=== PATIENT | male | born 1960 | race Caucasian/White ===

== ENCOUNTER → 2016-12-16 | Outpatient (CLI) | payer BC ==
[~2016-12-16] MED LIST: AMLODIPINE BESYL5 MG PO; ASPIRIN EC81 M1 PO; BENAZEPRIL HCL5 MG PO; BRILINTA90 MG PO; CLOPIDOGREL75 MG PO; CRESTOR40 MG PO; DILANTIN PO; FISH OIL OMEGA1 EAC2 PO; GLUCOPHAGE500 MG PO; KEFLEX500 MG PO; LASIX PO; LOPID600 MG PO; LOTENSIN20 MG PO; LOW DOSE ASPIRI81 M1 PO; METFORMIN PO; METOPROLOL SUCC25 MG PO; MULTI VITAMIN1 EACH PO; NITROSTAT0.4 MG SL; NORVASC PO; PHENYTOIN SODI100 M4 PO; PLAVIX PO; VALPROIC ACID250 MG PO; VICTOZA0.6 MG/0.1 SQ; VICTOZA0.6 MG/0.1 SUBQ; ZETIA PO
--- NOTE | ~2016-12-16 | CT134 ---
[facility] A Service [facility] RADIOLOGY TEXT RESULTS PATIENT: YVES ROUSE LOCATION: [facility] : 62 UNIT #: [id number] AGE: [address]: Jeremías Govea MD SEX: M ORDER DR: [id number] [place] [address] [facility]. [place], [place] [address] [id number] O MR#: [id number] Acc #: [id number] NAME: YVES ROUSE : 1960 SEX: M STUDY DATE/TIME: 12/16/2016 9:16 UNIT: [facility] ROOM: STUDY DESCRIPTION: CT Guide Attending Physician: Jeremías Govea M.D. Ordering Physician: Jeremías Govea M.D. Primary Care Physician: Guillermo Nelson M.D. MEDICAL IMAGING REPORT This report is preliminary unless electronic signature is present REVISED REPORT EXAM CT-guided biopsy of external iliac nodes. DATE OF EXAM 12/16/2016 HISTORY SUPPLIED Inguinal and pelvic lymphadenopathy. Procedure, attendant risks and options were discussed with the patient who understands and wishes to proceed. TECHNIQUE NOTE: This CT exam was performed with one or more of the following radiation dose reduction techniques: automatic exposure control, adjustment of mA and/or kV according to patient size, and iterative reconstruction. PROCEDURE This examination was performed under conscious sedation with IV Versed and fentanyl. The patient was monitored by the IR nurse during the entire procedure. Total sedation time 35 minutes. Patient was scanned and subsequently the right iliac node was localized. The skin was marked, prepped and draped with chlorhexidine solution, and sterile drapes. Utilizing sterile gloves, a 17-gauge guide needle was advanced incrementally to the margin of the node and 18-gauge core specimens were obtained and placed in the media for flow cytometry, as well as histology. Needle was removed, hemostasis achieved. The procedure was very well tolerated. The patient has taken to the short-stay unit for monitoring for 1 hour prior to discharge. [facility] A Service [facility] RADIOLOGY TEXT RESULTS PATIENT: YVES ROUSE LOCATION: [facility] #: [id number] : 62 UNIT #: [id number] AGE: [address]: Jeremías Govea MD SEX: M ORDER DR: CONCLUSION Successful CT-guided biopsy of the right external iliac node. *ACCESSION NUMBER MODIFIED. Dictated by... Kostas Saenz M.D. THIS IS AN ELECTRONICALLY VERIFIED REPORT Kostas Saenz M.D. at 12/24/2016 5:18 PM Kathleen TD: 12/16/2016 16:56 JOB #: [id number] MEDICAL IMAGING REPORT Page 1 of 1 COPY
--- NOTE | ~2016-12-16 | CT134 ---
[facility] A Service [facility] RADIOLOGY TEXT RESULTS PATIENT: YVES ROUSE LOCATION: [facility] : 62 UNIT #: [id number] AGE: [address]: Jeremías Govea MD SEX: M ORDER DR: [id number] [place] [id number] [facility]. [place], [place] [address] [id number] O MR#: [id number] Acc #: [id number] NAME: YVES ROUSE. : 1960 SEX: M STUDY DATE/TIME: 12/16/2016 9:16 UNIT: [facility] ROOM: STUDY DESCRIPTION: CT Guide Attending Physician: Jeremías Govea M.D. Ordering Physician: Jeremías Govea M.D. Primary Care Physician: Guillermo Nelson M.D. MEDICAL IMAGING REPORT This report is preliminary unless electronic signature is present 2ND REVISION EXAM CT-guided biopsy of external iliac nodes. DATE OF EXAM 12/16/2016 HISTORY SUPPLIED Inguinal and pelvic lymphadenopathy. Procedure, attendant risks and options were discussed with the patient who understands and wishes to proceed. TECHNIQUE NOTE: This CT exam was performed with one or more of the following radiation dose reduction techniques: automatic exposure control, adjustment of mA and/or kV according to patient size, and iterative reconstruction. PROCEDURE This examination was performed under conscious sedation with IV Versed and fentanyl. The patient was monitored by the IR nurse during the entire procedure. Total sedation time 35 minutes. Patient was scanned and subsequently the right iliac node was localized. The skin was marked, prepped and draped with chlorhexidine solution, and sterile drapes. Utilizing sterile gloves, a 17-gauge guide needle was advanced incrementally to the margin of the node and 18-gauge core specimens were obtained and placed in the media for flow cytometry, as well as histology. Needle was removed, hemostasis achieved. The procedure was very well tolerated. The patient has taken to the short-stay unit for monitoring for 1 hour prior to discharge. [facility] A Service of [facility] RADIOLOGY TEXT RESULTS PATIENT: YVES ROUSE LOCATION: [facility] #: [id number] : 62 UNIT #: [id number] AGE: [address]: Jeremías Govea MD SEX: M ORDER DR: CONCLUSION Successful CT-guided biopsy of the right external iliac node. *ACCESSION NUMBER MODIFIED. Dictated by... Kostas Saenz M.D. THIS IS AN ELECTRONICALLY VERIFIED REPORT Kostas Saenz M.D. at 01/03/2017 7:34 AM Kathleen TD: 12/16/2016 16:56 JOB #: [id number] MEDICAL IMAGING REPORT Page 1 of 1 COPY
--- NOTE | ~2016-12-16 | XA55 ---
[facility]. [facility] A Service of [facility] RADIOLOGY TEXT RESULTS PATIENT: YVES ROUSE LOCATION: PSYCHIATRIC : 62 UNIT #: [id number] AGE: [address]: Jeremías Govea MD SEX: M ORDER DR: [id number] [facility] [address]. [place], [place] [address] [id number] O MR#: [id number] Acc #: [id number] NAME: YVES ROUSE. : 1960 SEX: M STUDY DATE/TIME: 12/16/2016 UNIT: PSYCHIATRIC ROOM: STUDY DESCRIPTION: XA BX Lymph Node Superficial Attending Physician: Jeremías Govea M.D. Ordering Physician: Jeremías Govea M.D. Primary Care Physician: Guillermo Nelson M.D. MEDICAL IMAGING REPORT This report is preliminary unless electronic signature is present EXAM XA biopsy lymph node superficial. DATE OF EXAM 12/16/2016 HISTORY SUPPLIED Inguinal and pelvic lymphadenopathy. Procedure, attendant risks and options were discussed with the patient who understands and wishes to proceed. FINDINGS Please see CT-guided biopsy of external iliac nodes for results. Dictated by... oKstas Saenz M.D. THIS IS AN ELECTRONICALLY VERIFIED REPORT Kostas Saenz M.D. at 12/20/2016 4:53 PM GREYSON/nicole TD: 12/16/2016 17:22 JOB #: [id number] MEDICAL IMAGING REPORT Page 1 of 1 COPY
[2016-12-16 07:55] LABS: HEMATOCRIT 36.6 % (38.0-50.0); HEMOGLOBIN 12.2 gm/dL (13.0-16.0); MEAN CELL VOLUME 82.6 FL (83-96); MEAN CORPUSCULAR HEMOGLOBIN 27.5 PG (28-34); MEAN CORPUSCULAR HGB CONC 33.3 g/dL (30-36); MEAN PLATELET VOLUME 7.1 FL (6.5-11.5); RED BLOOD COUNT 4.43 X10e (3.90-5.60); RED CELL DISTRIBUTION WIDTH 15.3 % (11.0-15.5); WHITE BLOOD COUNT 6.4 X10e3 (4.0-10.5)
[2016-12-16 08:18] LABS: PARTIAL THROMBOPLASTIN TIME 23.1 SECONDS (23.5-31.3); PROTHROMBIN TIME (PATIENT) 10.3 SECONDS (9.6-11.5)
== END | disposition home or self-care (01) ==
LOC: CIVR 07:26
PROVIDERS: Internal Medicine Hematology
DX: I88.9 Nonspecific lymphadenitis, unspecified (principal); D50.9 Iron deficiency anemia, unspecified; G47.30 Sleep apnea, unspecified; E11.9 Type 2 diabetes mellitus without complications; Z79.82 Long term (current) use of aspirin; Z79.02 Long term (current) use of antithrombotics/antiplatelets; E66.9 Obesity, unspecified; I25.2 Old myocardial infarction; Z95.5 Presence of coronary angioplasty implant and graft
CPT/HCPCS: 36415; 77012; 85027; 85610; 85730; 88305; 88312; J2250; J3010

== ENCOUNTER → 2016-12-17 | Outpatient (CLI) | payer BC ==
--- NOTE | ~2016-12-17 | CT134 ---
[facility] A Service [facility] RADIOLOGY TEXT RESULTS PATIENT: YVES ROUSE LOCATION: [facility] : 62 UNIT #: [id number] AGE: [address]: HERMES HISNON SEX: M ORDER DR: [id number] [facility] [address] [place], [place] [address] [id number] P MR#: [id number] Acc #: [id number] NAME: YVES ROUSE. : 1960 SEX: M STUDY DATE/TIME: 12/16/2016 9:16 UNIT: [facility] ROOM: STUDY DESCRIPTION: CT Guide Attending Physician: Hermes Holloway Od Referring Physician: Hermes Holloway Od Ordering Physician: Jeremías Govea M.D. Primary Care Physician: Guillermo Nelson M.D. MEDICAL IMAGING REPORT This report is preliminary unless electronic signature is present EXAM CT-guided biopsy of external iliac nodes. DATE OF EXAM 12/16/2016 HISTORY SUPPLIED Inguinal and pelvic lymphadenopathy. Procedure, attendant risks and options were discussed with the patient who understands and wishes to proceed. TECHNIQUE NOTE: This CT exam was performed with one or more of the following radiation dose reduction techniques: automatic exposure control, adjustment of mA and/or kV according to patient size, and iterative reconstruction. PROCEDURE This examination was performed under conscious sedation with IV Versed and fentanyl. The patient was monitored by the IR nurse during the entire procedure. Total sedation time 35 minutes. Patient was scanned and subsequently the right iliac node was localized. The skin was marked, prepped and draped with chlorhexidine solution, and sterile drapes. Utilizing sterile gloves, a 17-gauge guide needle was advanced incrementally to the margin of the node and 18-gauge core specimens were obtained and placed in the media for flow cytometry, as well as histology. Needle was removed, hemostasis achieved. The procedure was very well tolerated. The patient has taken to the short-stay unit for monitoring for 1 hour prior to discharge. CONCLUSION Successful CT-guided biopsy of the right external iliac node. [facility] A Service [facility] RADIOLOGY TEXT RESULTS PATIENT: YVES ROUSE [facility] : 62 UNIT #: [id number] AGE: [address]: HERMES HINSON SEX: M ORDER DR: Dictated by... Kostas Saenz M.D. THIS IS AN ELECTRONICALLY VERIFIED REPORT Kostas Saenz M.D. at 12/20/2016 4:53 PM GREYSON/nicole TD: 12/16/2016 16:56 JOB #: [id number] MEDICAL IMAGING REPORT Page 1 of 1 COPY
--- NOTE | ~2016-12-17 | MR148 ---
[facility] A Service of [facility] & [facility] RADIOLOGY TEXT RESULTS PATIENT: YVES ROUSE LOCATION: [facility] : 62 UNIT #: [id number] AGE: [address]: HERMES HINSON SEX: M ORDER DR: [id number] [facility] [address] [place], [place] [address] [id number] O MR#: [id number] Acc #: [id number] NAME: YVES ROUSE : 1960 SEX: M STUDY DATE/TIME: 12/17/2016 10:03 UNIT: [facility] ROOM: STUDY DESCRIPTION: MR Orbit Face and or Neck WWo Attending Physician: Hermes Hinson Referring Physician: Hermes Hinson Ordering Physician: Hermes Holloway Od Primary Care Physician: Guillermo Nelson M.D. MRI CENTER REPORT This report is preliminary unless electronic signature is present. EXAM Follow MRI of the orbit face or neck with and without HISTORY Increased pressure in the right eye, trouble with pressure since 2014. Patient is okay today, per patient. No history of cancer. Optic papillitis. COMMENT MRI of the orbits performed prior to and following intravenous administration of 20 mL of MultiHance. There is a separate brain MRI dictation. There are mucous retention cyst or polyps in the maxillary sinuses. The globes are intact. The lenses are located. Superior ophthalmic veins are symmetric. Lacrimal glands are unremarkable. The retrobulbar fat is well-maintained. The extraocular muscles are normal. Incidental note made of a partially empty sella. Optic nerves, chiasm and tracts show normal signal intensity. There is no mass effect or pathologic enhancement. There is nothing to suggest optic neuritis. The study would not be sensitive for papilledema. There is mild fullness of the optic nerve sheaths bilaterally which is very nonspecific. This can be seen is a manifestation of increased intracranial pressure and please correlate for clinical evidence of papilledema. Visualized brain is atrophic. IMPRESSION 1. Optic nerve sheaths are mildly dilated. This is very nonspecific but can be seen in the setting of papilledema. Please correlate for clinical evidence of increased intracranial pressure. 2. Partial demonstration of atrophy of the visualized brain parenchyma. 3. Otherwise essentially normal MRI of the orbits with and without contrast. [facility]. [facility] A Service of [facility] & [facility] RADIOLOGY TEXT RESULTS PATIENT: YVES ROUSE LOCATION: [facility] : 62 UNIT #: [id number] AGE: [address]: HERMES HINSON SEX: M ORDER DR: Dictated by... Malorie Cheek M.D. THIS IS AN ELECTRONICALLY VERIFIED REPORT Malorie Cheek M.D. at 12/17/2016 5:11 PM Taylor TD: 12/17/2016 13:01 JOB #: [id number] MRI CENTER REPORT Page 1 of 1 COPY
--- NOTE | ~2016-12-17 | MR17 ---
[facility] A Service of [facility] & [facility] RADIOLOGY TEXT RESULTS PATIENT: YVES ROUSE LOCATION: [facility] : 62 UNIT #: [id number] AGE: [address]: HERMES HINSON SEX: M ORDER DR: [id number] [facility] [address] [place], [place] [address] [id number] O MR#: [id number] Acc #: [id number] NAME: YVES ROUSE. : 1960 SEX: M STUDY DATE/TIME: 12/17/2016 9:00 UNIT: [facility] ROOM: STUDY DESCRIPTION: MR Brain WWo Contrast Attending Physician: Hermes Hinson Referring Physician: Hermes Hinson Ordering Physician: Hermes Holloway Od Primary Care Physician: Guillermo Nelson M.D. MRI CENTER REPORT This report is preliminary unless electronic signature is present. EXAM MRI brain with and without. HISTORY Increasing pressure in the right eye. The patient says that the had problems since 2014. Vision okay today, per patient. No history of cancer. COMMENT MRI of the brain was performed prior to and following intravenous administration of 20 mL of MultiHance. There is a separate MRI of the orbits with and without contrast. Please refer to the dictation. There is no evidence for recent ischemic insult on the diffusion series. No Chiari-I malformation. Incidental note made of a partially empty sella. Again there is atrophy greater than expected for age group with particular volume loss of posterior frontal anterior parietal lobes and the temporal lobe region bilaterally. Please correlate for any clinical concern for Alzheimer type dementia. Chronic lacunar disease noted at the inferior posterior right cerebellar hemisphere. Otherwise minor white matter lesions supratentorial brain within the range expected for age group. There is no extraaxial fluid collection. There are large mucous retention cysts or polyps in the maxillary sinuses. There has been prior cataract surgery on the right. Mastoid air cells are clear. Major intracranial flow voids are maintained. Postcontrast imaging whole brain shows no pathologic intracranial enhancement or intracranial mass lesion. IMPRESSION 1. There is atrophy greater than expected for age group but somewhat disproportionate volume loss posterior frontal to anterior parietal lobes and bilateral temporal lobes. Please correlate for any clinical concern for Alzheimer type dementia. 2. Small chronic lacunar insults right inferior cerebellar hemisphere. Otherwise minor probable sequelae of small vessel disease within the STS. [facility] A Service of [facility] & [facility] RADIOLOGY TEXT RESULTS PATIENT: YVES ROUSE LOCATION: [facility] : 62 UNIT #: [id number] AGE: [address]: HERMES HINSON SEX: M ORDER DR: range of normal for age group. No recent ischemic insult. 3. Please see separate MRI orbits dictation. Dictated by... Malorie Cheek M.D. THIS IS AN ELECTRONICALLY VERIFIED REPORT Malorie Cheek M.D. at 12/17/2016 5:11 PM Taylor TD: 12/17/2016 12:46 JOB #: [id number] MRI CENTER REPORT Page 1 of 1 COPY
[2016-12-17 08:39] LABS: BASOPHIL# 0.1 X10e3 (0-0.3); BASOPHIL% 0.8 % (0-2.5); EOSINOPHIL# 0.3 X10e3 (0-0.7); EOSINOPHIL% 4.6 % (0.0-7.0); HEMOGLOBIN 12.1 gm/dL (13.0-16.0); LYMPHOCYTE# 1.8 X10e3 (1.0-3.5); LYMPHOCYTE% 24.6 % (17.0-45.0); MEAN CORPUSCULAR HEMOGLOBIN 27.3 PG (28-34); MEAN CORPUSCULAR HGB CONC 32.6 g/dL (30-36); MEAN PLATELET VOLUME 7.2 FL (6.5-11.5); MONOCYTE# 0.6 X10e3 (0-1.0); MONOCYTE% 8.3 % (3.0-12.0); NEUTROPHIL# 4.6 X10e3 (1.5-7.1); NEUTROPHIL% 61.7 % (40-75); PLATELET COUNT 271 X10e3 (140-420); RED BLOOD COUNT 4.41 X10e (3.90-5.60); RED CELL DISTRIBUTION WIDTH 15.4 % (11.0-15.5); WHITE BLOOD COUNT 7.5 X10e3 (4.0-10.5)
[2016-12-17 08:40] LABS: DIFF IND NO
[2016-12-17 09:22] LABS: POC - GFR >60.0 mL/min (>60)
[2016-12-17 09:41] LABS: BUN/CREATININE RATIO 18.88; CALCIUM SERUM 8.8 mg/dL (8.4-10.2); CREATININE SERUM 0.9 mg/dL (0.6-1.4); GLOM FILT RATE Estimated 95.8 mL/min (>60); POTASSIUM 4.8 mmol/L (3.5-5.1)
[2016-12-20 21:11] LABS: ANA SCREEN Negative (Negative)
== END | disposition home or self-care (01) ==
LOC: CMRI 07:57
PROVIDERS: Optometrist
DX: H46.01 Optic papillitis, right eye (principal); G31.9 Degenerative disease of nervous system, unspecified
CPT/HCPCS: 36415; 70543; 70553; 77012; 80048; 82164; 82565; 85025; 85549; 85652; 86038; 86039; 86140; 86430; 86592; 86780; 86812; A9577